=== PATIENT | female | born 1995 | race Caucasian/White ===

== ENCOUNTER 2022-09-18 13:31 | Observation (INO) | payer OTHER, SELFPAY ==
--- NOTE | 2022-09-18 13:48 | DI.US.S_ITS ---
PROCEDURE: US OB LIMITED INDICATIONS: CONTRACTIONS OUTSIDE/PRIOR DATING DATA: Last menstrual period (LMP): 02/24/2022 LMP-based estimated date of delivery (RAMON): 12/01/2022 First dating scan (date and location): 07/19/2022 Estimated date of delivery (RAMON) from first dating scan: Not available The calculations are made using the working RAMON of 12/01/2022 TECHNIQUE: Real-time scanning was performed of the fetus, with image documentation and biometric measurements. Endovaginal scanning: Not indicated COMPARISON: None. FINDINGS: General: A single living intrauterine gestation is present. Presentation: Vertex Placenta: Placental position is anterior, without previa. Amniotic fluid index: 26.9 cm, normal range is 5-24 cm. Single deepest vertical pocket is 8.3 cm. heart rate: 143 beats per minute. Maternal cervical canal: 2.8 cm long. Normal lower limit is 2.5 cm. biometrics: Biparietal diameter: 8.1 cm, 32 weeks, 4 days. Head circumference: 29.3 cm, 32 weeks, 3 days. Abdominal circumference: 31.0 cm, 34 weeks, 6 days. Femur length: 5.6 cm, 29 weeks, 4 days. Clinically estimated gestational age: 29 weeks, 3 days Composite gestational age from present scan: 32 weeks, 3 days Estimated weight and percentile: 2092 g, greater than 99% Other: chest, bilateral kidneys and urinary bladder are visualized and are within normal limits. There is a segment of fluid-filled bowel loop with internal debris and thickened echogenic wall measures 7 x 6.4 x 6.3 cm in size. Possible isoechoic solid lesion versus at effects is noted within superior portion of the enlarged bowel loop and measures 1.8 x 1.3 cm in size. IMPRESSION: 1. Single live intrauterine gestation with fetus in vertex presentation. heart rate is 143 beats per minute. Increased FRANKLIN measures 26.9 cm. 2. Estimated weight is greater than 99%. 3. Abnormal appearance of bowel loops as described above and is of indeterminate etiology. Close sonographic follow-up is recommended. We strive to produce accurate, complete, and clear reports of imaging services. To assist us in improving patient care, this report was composed using standard report templates and voice recognition software. Therefore, it may contain abnormal punctuation, insertions and/or omissions. Occasional wrong-word or sound-alike substitutions may occur. Though we review the report and make efforts to correct it, we do recommend that the report be read carefully in proper context to recognize any text inaccuracies. Dictated by: Gennaro Hines M.D. on 09/18/2022 at 16:06 Approved by: Gennaro Hines M.D. on 09/18/2022 at 16:11
[2022-09-18 14:15] LABS: Appearance Urine UA CLEAR; Bilirubin Urine UA NEGATIVE (NEGATIVE); Color Urine UA YELLOW; Glucose Urine UA NEGATIVE (Negative); Ketones Urine UA 1+ (NEGATIVE); Leukocyte Esterase Urine UA 1+ (NEGATIVE); Nitrite Urine UA NEGATIVE (Negative); Occult Blood Urine UA NEGATIVE (Negative); Protein Urine UA NEGATIVE (Negative); Specific Gravity Urine UA <=1.005 (1.000-1.035); Urobilinogen Urine UA 0.2 E.U./dL (0.2)
[2022-09-18 14:16] LABS: pH Urine UA 5.5 (4.5-8.0)
[2022-09-18] MEDS: NIFEdipine 10 MG CAPSULE PO ×4 (14:23→15:27)
[2022-09-18 14:25] LABS: Bacteria Urine Occasional (0-1); Culture Indicated Urine Specimen Cultured; RBC Urine None Seen (0-5/HPF); Squamous Epithelial Cell Urine 1-5 /HPF (0-5/HPF); WBC Urine 0-1/HPF (0-5/HPF)
[2022-09-18 15:24] LABS: Fetal Fibronectin Negative
--- NOTE | 2022-09-18 16:25 | PM.OBTRLD ---
Visit Information Visit Information Date of evaluation: 09/18/22 Primary OB Provider: Chantell Lucero On-call OB Provider: Adeline Linda Comments/Additional reasons for admission: [id number] @ [id number] based on 8wk US referred to triage from clinic for concern for contractions. Routine, uncomplicated care with CNM. Seen in clinic today with concern for decreased movement which was audible in clinic, but Q1.5 minute contractions were noted. Patient has significant low back pain and feels like her uterus is constantly tight, but otherwise unaware of contractions. No vaginal bleeding or leaking of fluid. Has noticed that her belly has gotten significantly bigger over the last 1-2 weeks. Vital Signs Vital Signs: BP 115/81, HR 98bpm, T 36.5C Temporal PFSH Social History (Updated 09/18/22 @ 16:37 by Chantell Lucero CNM) marital status: household members: spouse lives independently: Yes housing: house occupational status: employed Smoking Status: Never smoker Review of Systems Review of Systems ROS: Yes All systems reviewed with the patient and are negative except as otherwise documented Exam Vital Signs (past 8 hours): see above Presentation: vertex Objective Imaging OB >14wks Limited: Radiologist's impression: Patient: Tanja Kendall MR#: [id number] : 1995 Acct:[id number] Age/Sex: 27 / F Date of Service: 09/18/22 Loc: LABOR [id number] Accession Number: [id number] Procedure: US OB limited Ordering Provider: Chantell Lucero CMagdalenaNMagdalenaMMagdalena PROCEDURE: US OB LIMITED INDICATIONS: CONTRACTIONS OUTSIDE/PRIOR DATING DATA: Last menstrual period (LMP): 02/24/2022 LMP-based estimated date of delivery (RAMON): 12/01/2022 First dating scan (date and location): 07/19/2022 Estimated date of delivery (RAMON) from first dating scan: Not available The calculations are made using the working RAMON of 12/01/2022 TECHNIQUE: Real-time scanning was performed of the fetus, with image documentation and biometric measurements. Endovaginal scanning: Not indicated COMPARISON: None. FINDINGS: General: A single living intrauterine gestation is present. Presentation: Vertex Placenta: Placental position is anterior, without previa. Amniotic fluid index: 26.9 cm, normal range is 5-24 cm. Single deepest vertical pocket is 8.3 cm. heart rate: 143 beats per minute. Maternal cervical canal: 2.8 cm long. Normal lower limit is 2.5 cm. biometrics: Biparietal diameter: 8.1 cm, 32 weeks, 4 days. Head circumference: 29.3 cm, 32 weeks, 3 days. Abdominal circumference: 31.0 cm, 34 weeks, 6 days. Femur length: 5.6 cm, 29 weeks, 4 days. Clinically estimated gestational age: 29 weeks, 3 days Composite gestational age from present scan: 32 weeks, 3 days Estimated weight and percentile: 2092 g, greater than 99% Other: chest, bilateral kidneys and urinary bladder are visualized and are within normal limits. There is a segment of fluid-filled bowel loop with internal debris and thickened echogenic wall measures 7 x 6.4 x 6.3 cm in size. Possible isoechoic solid lesion versus at effects is noted within superior portion of the enlarged bowel loop and measures 1.8 x 1.3 cm in size. IMPRESSION: 1. Single live intrauterine gestation with fetus in vertex presentation. heart rate is 143 beats per minute. Increased FRANKLIN measures 26.9 cm. 2. Estimated weight is greater than 99%. 3. Abnormal appearance of bowel loops as described above and is of indeterminate etiology. Close sonographic follow-up is recommended. We strive to produce accurate, complete, and clear reports of imaging services. To assist us in improving patient care, this report was composed using standard report templates and voice recognition software. Therefore, it may contain abnormal punctuation, insertions and/or omissions. Occasional wrong-word or sound-alike substitutions may occur. Though we review the report and make efforts to correct it, we do recommend that the report be read carefully in proper context to recognize any text inaccuracies. Labs Labs: Laboratory Results - last 24 hr 09/18/22 09/18/22 14:00 14:00 Urine Color Yellow Urine Appearance Clear Urine pH 5.5 Ur Specific [place] <=1.005 Urine Protein Negative Urine Glucose (UA) Negative Urine Ketones 1+ H Urine Occult Blood Negative Urine Nitrate Negative Urine Bilirubin Negative Urine Urobilinogen 0.2 Ur Leukocyte Esterase 1+ H Urine RBC None seen Urine WBC 0-1/hpf Ur Squamous Epith Cells 1-5 /hpf Urine Bacteria Occasional (0-1) Ur Culture Indicated? Specimen cultured Fibronectin Negative Evaluation Evaluation Baseline heart rate: 150 Variability: Moderate (11-25) monitor accelerations: Present Monitor Decelerations: Absent Comments: CE deferred. Diagnosis, Plan/Disposition Final Diagnosis (1) Abnormal ultrasound: Status: Acute (2) uterine contractions: Status: Acute Problem details: CL-2.8cm, fFN- negative-> decreased risk of labor Plan/Disposition Plan: A: nullipara @ [id number] bowel obstruction contractions Reactive [employer] P:Consulted [facility] who recommended she be seen in their clinic tomorrow at 1015 for formal consultation. They did not want steroids to be given at this time. Explained ultrasound findings to Chong and recommend transfer of care to [facility] for high risk surveillance of . Appointment information given to Tanja and records faxed to [facility]. OB Disposition: home
== END 2022-09-18 16:30 | disposition home or self-care (01) ==
PROVIDERS: Admitting Provider Nurse Practitioner Obstetrics & Gynecology; Referring Provider Nurse Practitioner Obstetrics & Gynecology; Visit Provider Nurse Practitioner Obstetrics & Gynecology
DX: O47.03 False labor before 37 completed weeks of gestation, third trimester (principal); Z3A.29 29 weeks gestation of pregnancy
CPT/HCPCS: 59025; 59050; 76815; 76817; 76830; 81001; 82731; 87086; G0378; G0379